=== PATIENT | female | born 1980 | race Asian ===

== ENCOUNTER 2017-08-21 02:38 | Inpatient (IN) | payer OTHER ==
[~2017-08-21] VITALS: Ht 162.6 cm; Wt 79.4 kg
[2017-08-21] MEDS ORDERED: LACTATED RINGERS 1,000 ML IV SCH (06:05)
[2017-08-21] MEDS ORDERED: CITRIC ACID/SODIUM CITRATE 30 ML UDC PO ONE (06:05)
[2017-08-21] MEDS ORDERED: METOCLOPRAMIDE 10 MG/2 ML INJ VIAL IVP ONE (06:05)
[2017-08-21] MEDS ORDERED: ceFAZolin 1,000 MG VIAL ONE (06:06)
[2017-08-21] MEDS ORDERED: FERR-252 PO (06:11)
[2017-08-21] MEDS ORDERED: PREN-546 PO (06:11)
[2017-08-21] MEDS ORDERED: CITRIC ACID/SODIUM CITRATE 30 ML UDC ONE (06:23)
[2017-08-21 06:49] LABS: BASOPHILS # (AUTO) 0.1 K/uL (0.00-0.22); BASOPHILS % (AUTO) 0.7 % (0.0-2.0); EOSINOPHILS # (AUTO) 0.1 K/uL (0-0.4); EOSINOPHILS % (AUTO) 0.9 % (0.0-4.0); HEMATOCRIT 34.2 % (36-48); HEMOGLOBIN 11.6 g/dL (12.0-16.0); LYMPHOCYTES # (AUTO) 1.5 K/uL (2.5-16.5); LYMPHOCYTES % (AUTO) 16.2 % (20.5-51.1); MEAN CORPUSCULAR HEMOGLOBIN 30 pg (27-31); MEAN CORPUSCULAR HGB CONC 34 g/dL (33-37); MEAN CORPUSCULAR VOLUME 87 fL (80-94); MONOCYTES # (AUTO) 0.7 K/uL (0.8-1.0); MONOCYTES % (AUTO) 7.4 % (1.7-9.3); NEUTROPHILS % (AUTO) 74.8 % (42.2-75.2); PLATELET COUNT (AUTO) 208 K/uL (140-450); RED BLOOD CELL COUNT(AUTO) 3.94 MIL/uL (4.20-5.40); RED CELL DISTRIBUTION WIDTH 13.2 % (11.6-13.7); WHITE BLOOD COUNT (AUTO) 9.4 K/uL (4.8-10.8)
[2017-08-21 06:50] LABS: APPEARANCE,URINE CLEAR (CLEAR); BILIRUBIN,URINE NEGATIVE (NEGATIVE); BLOOD, URINE NEGATIVE (NEGATIVE); COLOR,URINE YELLOW (YELLOW); LEUKOCYTE ESTERASE ,URINE NEGATIVE (NEGATIVE); NITRITE, URINE NEGATIVE (NEGATIVE); UGLUCOSE NEGATIVE (NEGATIVE)
[2017-08-21] MEDS ORDERED: MIDAZOLAM 2 MG/2 ML VIAL ONE (07:27)
[2017-08-21] MEDS ORDERED: MORPHINE PRES FREE 10 MG/10 ML AMP IV ONE (07:28)
[2017-08-21] MEDS ORDERED: TRIAMCINOLONE 40 MG/ML 5ML VIAL ONE (07:34)
[2017-08-21] MEDS ORDERED: OXYTOCIN 10 UNITS/ML VIAL ONE (07:34)
[2017-08-21] MEDS ORDERED: OXYTOCIN 20 UNITS in LACTATED RINGERS 1,000 ML IV SCH ×2 (07:48→07:58)
[2017-08-21] MEDS ORDERED: NALOXONE 0.4 MG/ML VIAL IVP PRN ×3 (07:50)
[2017-08-21] MEDS ORDERED: diphenhydrAMINE 50 MG/ML VIAL IVP PRN (07:50)
[2017-08-21] MEDS ORDERED: NALBUPHINE 10 MG/ML AMP IVP PRN (07:50)
[2017-08-21] MEDS ORDERED: HYDROmorphone 1 MG/ML AMP IVP PRN (07:50)
[2017-08-21] MEDS ORDERED: ONDANSETRON 4 MG/2 ML VIAL IVP PRN ×2 (07:50)
[2017-08-21] MEDS ORDERED: MEPERIDINE 25 MG/ML SYR IVP PRN (07:50)
[2017-08-21] MEDS ORDERED: MEASLES, MUMPS, AND RUBELLA 1 VIAL SQVAC PRN (08:00)
[2017-08-21] MEDS ORDERED: METHYLERGONOVINE 0.2 MG/ML AMP IM PRN (08:00)
[2017-08-21] MEDS ORDERED: oxyCODONE/APAP 5/325 MG 1 TAB TAB PO PRN (08:00)
[2017-08-21] MEDS ORDERED: TRIMETHOBENZAMIDE 200 MG/2 ML SYR IM PRN (08:00)
[2017-08-21] MEDS ORDERED: TEMAZEPAM 15 MG CAP PO PRN (08:00)
[2017-08-21 08:01] LABS: RBC,URINE NONE SEEN /HPF (0-5); WBC,URINE 0-5 (RARE) /HPF (0-5)
[2017-08-21 08:42] VITALS: BP 103/61
[2017-08-21] MEDS: diphenhydrAMINE 50 MG/ML VIAL IVP PRN ×2 (09:00→09:18)
--- NOTE | 2017-08-21 09:04 | NUR ---
PATIENT HAS BEEN SCREENED AND CATEGORIZED LOW NUTRITION RISK. PATIENT WILL BE SEEN WITHIN 7 DAYS OF ADMISSION. 08/27/[address]
[2017-08-21] MEDS ORDERED: OXYTOCIN 20 UNITS/LR PREMIX 1,000 ML IV ONE (09:13)
[2017-08-21] MEDS ORDERED: diphenhydrAMINE 50 MG/ML VIAL ONE (09:13)
[2017-08-21] MEDS ORDERED: ONDANSETRON 4 MG/2 ML VIAL ONE (09:19)
[2017-08-21] MEDS ORDERED: MEPERIDINE 25 MG/ML SYR ONE (09:36)
[2017-08-21] MEDS ORDERED: KETOROLAC 30 MG/ML VIAL IM/IVP SCH (12:00)
--- NOTE | 2017-08-21 14:08 | NUR ---
TOLERATED INCENTIVE SPIROMETRY THERAPY WELL WITHOUT ADVERSE REACTIONS NOTED ENCOURAGED PATIENT WITH ACKNOWLEDGEMENT TO USE INCENTIVE SPIROMETRY EVERY 1-2 HOURS WHILE AWAKE
[2017-08-21] MEDS: DOCUSATE SOD/SENNA 50/8.6 MG 1 TAB PO SCH (20:59)
[2017-08-21] MEDS: IBUPROFEN 800 MG TAB PO PRN (20:59)
[2017-08-22] MEDS: HYDROcodone/APAP 5/325 MG 1 TAB TAB PO PRN ×4 (03:12→23:17)
[2017-08-22 05:34] LABS: BASOPHILS # (AUTO) 0.1 K/uL (0.00-0.22); BASOPHILS % (AUTO) 0.4 % (0.0-2.0); EOSINOPHILS # (AUTO) 0.1 K/uL (0-0.4); EOSINOPHILS % (AUTO) 0.7 % (0.0-4.0); HEMATOCRIT 33.8 % (36-48); HEMOGLOBIN 11.4 g/dL (12.0-16.0); LYMPHOCYTES # (AUTO) 1.2 K/uL (2.5-16.5); MEAN CORPUSCULAR HEMOGLOBIN 30 pg (27-31); MEAN CORPUSCULAR HGB CONC 34 g/dL (33-37); MEAN CORPUSCULAR VOLUME 88 fL (80-94); MONOCYTES # (AUTO) 0.7 K/uL (0.8-1.0); MONOCYTES % (AUTO) 5.3 % (1.7-9.3); NEUTROPHILS # (AUTO) 10.8 K/uL (1.8-7.7); NEUTROPHILS % (AUTO) 84.6 % (42.2-75.2); PLATELET COUNT (AUTO) 198 K/uL (140-450); RED BLOOD CELL COUNT(AUTO) 3.84 MIL/uL (4.20-5.40); RED CELL DISTRIBUTION WIDTH 13.4 % (11.6-13.7); WHITE BLOOD COUNT (AUTO) 12.9 K/uL (4.8-10.8)
[2017-08-22] MEDS ORDERED: BLOOD GLUCOSE MONITORING 1 DEV DEV FS SCH (07:30)
[2017-08-22] MEDS: IBUPROFEN 800 MG TAB PO PRN (08:45)
[2017-08-22] MEDS: SIMETHICONE 80 MG TAB.CHEW PO PRN ×2 (11:46→21:43)
[2017-08-22] MEDS: DOCUSATE SOD/SENNA 50/8.6 MG 1 TAB PO SCH (21:43)
[2017-08-23] MEDS: HYDROcodone/APAP 5/325 MG 1 TAB TAB PO PRN (04:09)
[2017-08-23] MEDS: IBUPROFEN 800 MG TAB PO PRN (13:00)
[2017-08-24] MEDS ORDERED: INFLUENZA VIRUS VACCINE QUAD 0.5 ML SYR IMVAC PRN (20:00)
== END 2017-08-23 14:15 | disposition home or self-care (01) | DRG 540 ==
LOC: MLD 05:15 → MFCC 07:00
PROVIDERS: ADMIT Obstetrics & Gynecology; ATTEND Obstetrics & Gynecology
PROC: 10D00Z1 Extraction of Products of Conception, Low, Open Approach (ICD-10-PCS; principal; 2017-08-21 07:30)
DX: O34.211 Maternal care for low transverse scar from previous cesarean delivery (principal); O99.824 Streptococcus B carrier state complicating childbirth; O69.1XX0 Labor and delivery complicated by cord around neck, with compression, not applicable or unspecified; Z37.0 Single live birth; Z3A.39 39 weeks gestation of pregnancy; Z98.82 Breast implant status
CPT/HCPCS: 36415; 81001; 85025; 86592; 86886; 86900; 86901; J0690; J1200; J2175; J2250; J2270; J2405; J2590; J3301; J7060; J7120